=== PATIENT | male | born 1975 | race Caucasian/White ===

== ENCOUNTER 2020-09-13 11:48 | Emergency (ER) | payer OTHER ==
[2020-09-13] MEDS ORDERED: Ibuprofen 200 MG TAB ONE (12:10)
== END 2020-09-13 13:31 | disposition home or self-care (01) ==
LOC: ERS 11:48
DX: S63.501A Unspecified sprain of right wrist, initial encounter (principal); V89.2XXA Person injured in unspecified motor-vehicle accident, traffic, initial encounter

== ENCOUNTER 2025-01-09 10:12 | Emergency (ER) | payer BC | END 2025-01-09 10:27 | LOC: ERS 10:12 | DX: Z53.21 Procedure and treatment not carried out due to patient leaving prior to being seen by health care provider (principal) ==